=== PATIENT | male | born 1995 | race Hispanic/Latino ===

== ENCOUNTER 2023-01-03 14:54 | Emergency (ER) | payer MEDICAID, OTHER ==
[~2023-01-03] VITALS: Ht 180.3 cm; Wt 97.5 kg
[2023-01-03] MEDS ORDERED: CEFTRIAXONE 1G VIAL IVPB STA (22:18)
[2023-01-03] MEDS ORDERED: TETANUS/DIPHTHERIA TOXOID [ADULT] 0.5 ML VIAL IM ONE (22:30)
[2023-01-03] MEDS ORDERED: CEPH500B PO (22:35)
[2023-01-03 22:43] VITALS: BP 136/67
== END 2023-01-03 22:49 | disposition home or self-care (01) ==
LOC: EDH 14:54
DX: R23.4 Changes in skin texture (principal); S31.21XA Laceration without foreign body of penis, initial encounter; Z90.49 Acquired absence of other specified parts of digestive tract; Z98.890 Other specified postprocedural states; X58.XXXA Exposure to other specified factors, initial encounter; Y93.89 Activity, other specified; Y92.89 Other specified places as the place of occurrence of the external cause; Y99.8 Other external cause status
CPT/HCPCS: 99284; 96365; 90714; 90471; J0696